=== PATIENT | male | born 1935 | race Caucasian/White ===

== ENCOUNTER 2021-04-13 15:17 | Inpatient (IN) ==
[2021-04-13] MEDS ORDERED: ONDANSETRON 4 MG/2 ML VIAL IV PRN (16:10)
[2021-04-13] MEDS ORDERED: ZALEPLON 5 MG CAPSULE PO PRN (16:10)
[2021-04-13] MEDS ORDERED: diphenhydrAMINE CAP 25 MG CAPSULE PO PRN (16:10)
[2021-04-13] MEDS ORDERED: ACETAMINOPHEN 325 MG TABLET PO PRN (16:10)
[2021-04-13] MEDS ORDERED: MAGNESIUM SULF RIDER 2 GM/50 ML PREMIX IV PRN (16:10)
[2021-04-13] MEDS ORDERED: SIMETHICONE CHEW 125 MG TABLET PO PRN (16:10)
[2021-04-13] MEDS ORDERED: MAGNESIUM SULF RIDER 4 GM/100 ML PREMIX IV PRN (16:10)
[2021-04-13] MEDS ORDERED: ASPIRIN CHEW 81 MG TABLET PO ONE (16:16)
[2021-04-13] MEDS ORDERED: ENOXAPARIN 80 MG/0.8 ML SYRINGE SUBCUT ONE (16:17)
[2021-04-13 16:53] LABS: Basophils % 0.3 % (0.0-0.8); Eosinophils # 0.1 10*3/uL (0.0-0.87); Eosinophils % 0.6 % (0.00-10.9); Hematocrit 45.3 VOL% (42.0-52.0); Hemoglobin 15.5 GM/DL (14.0-18.0); Immature Granulocytes % 0.6 %; Immature Granulocytes Absolute 0.07 #; Lymphocytes # 1.7 10*3/uL (1.4-4.0); Lymphocytes % 15.5 % (21.2-54.2); Mean Corpuscular HGB Conc 34.2 GM/DL (32-36); Mean Corpuscular Volume 92.8 FL (87-102); Mean Platelet Volume 10.7 FL (9.6-12.0); Platelet Count 185 T/CUMM (130-400); Red Blood Count 4.88 MC/CUMM (3.8-5.5); Red Cell Distribution Width 12.8 % (9.3-17.3); White Blood Count 10.8 T/CUMM (4-12)
[2021-04-13 17:17] LABS: Albumin 3.3 G/DL (3.4-5.0); Bilirubin,Total 0.6 MG/DL (0.20-1.00); Calcium 8.9 MG/DL (8.5-10.1); Potassium 4.2 MMOL/L (3.5-5.1); Thyroid Stimulating Hormone 2.57 uIU/ml (0.358-3.74); Total Protein 6.7 G/DL (6.4-8.2)
[2021-04-13] MEDS: NITROGLYCERIN 2% OINT 1 INCH/GM PACK TOP SCH ×2 (17:34→18:55)
[2021-04-13] MEDS: ROSUVASTATIN 20 MG TABLET PO SCH ×2 (21:21→23:00)
[2021-04-13] MEDS: METOPROLOL TARTRATE 50 MG TABLET PO SCH (21:21)
[2021-04-14] MEDS: NITROGLYCERIN 2% OINT 1 INCH/GM PACK TOP SCH ×3 (01:55→12:22)
[2021-04-14 05:06] LABS: Basophils % 0.4 % (0.0-0.8); Eosinophils # 0.1 10*3/uL (0.0-0.87); Eosinophils % 0.6 % (0.00-10.9); Hematocrit 44.1 VOL% (42.0-52.0); Hemoglobin 14.6 GM/DL (14.0-18.0); Immature Granulocytes % 0.6 %; Immature Granulocytes Absolute 0.06 #; Lymphocytes % 19.7 % (21.2-54.2); Mean Corpuscular HGB Conc 33.1 GM/DL (32-36); Monocytes % 12.8 % (1.7-12.7); Neutrophils % 65.9 % (38.7-73.9); Platelet Count 181 T/CUMM (130-400); Red Blood Count 4.69 MC/CUMM (3.8-5.5); Red Cell Distribution Width 13.1 % (9.3-17.3); White Blood Count 10.1 T/CUMM (4-12)
[2021-04-14 05:33] LABS: Bilirubin,Total 0.9 MG/DL (0.20-1.00); Calcium 8.8 MG/DL (8.5-10.1); Osmolality,Calculated 270.1 MOS/KG (273-304); Potassium 4.4 MMOL/L (3.5-5.1); Total Protein 6.5 G/DL (6.4-8.2)
[2021-04-14] MEDS ORDERED: ENOXAPARIN 80 MG/0.8 ML SYRINGE SUBCUT SCH (07:00)
[2021-04-14] MEDS ORDERED: POTASSIUM CHLORIDE RIDER 10 MEQ/100 ML PREMIX IV PRN (07:09)
[2021-04-14] MEDS ORDERED: DIAZEPAM 5 MG TABLET PO ONE (07:09)
[2021-04-14] MEDS ORDERED: diphenhydrAMINE CAP 50 MG CAPSULE PO ONE (07:10)
[2021-04-14] MEDS ORDERED: HEPARIN/NACL 0.9% 2 UNITS/ML 2,000 UNIT/1,000 ML BAG IV ONE (07:26)
[2021-04-14] MEDS ORDERED: LIDOCAINE 1%/EPI INJ 20 ML VIAL ONE (07:26)
[2021-04-14] MEDS: SODIUM CHLORIDE 0.9% 1,000 ML IV SCH ×3 (07:27→22:00)
[2021-04-14] MEDS ORDERED: MIDAZOLAM 2 MG/2 ML VIAL ONE (09:19)
[2021-04-14] MEDS ORDERED: fentaNYL 100 MCG/2 ML VIAL ONE (09:20)
[2021-04-14] MEDS ORDERED: ENOXAPARIN 30 MG/0.3 ML SYRINGE ONE (09:49)
[2021-04-14] MEDS: METOPROLOL TARTRATE 50 MG TABLET PO SCH ×2 (10:00→21:55)
[2021-04-14] MEDS: ASPIRIN CHEW 81 MG TABLET PO SCH (10:01)
[2021-04-14] MEDS: PANTOPRAZOLE 40 MG TABLET PO SCH (10:01)
[2021-04-14] MEDS: ISOSORBIDE MONONITRATE 30 MG TABLET PO SCH (14:10)
[2021-04-14] MEDS: ROSUVASTATIN 20 MG TABLET PO SCH (21:14)
[2021-04-15 05:22] LABS: Basophils % 0.4 % (0.0-0.8); Eosinophils % 0.2 % (0.00-10.9); Hematocrit 37.7 VOL% (42.0-52.0); Hemoglobin 12.6 GM/DL (14.0-18.0); Immature Granulocytes % 0.7 %; Immature Granulocytes Absolute 0.08 #; Lymphocytes # 1.5 10*3/uL (1.4-4.0); Lymphocytes % 13.5 % (21.2-54.2); Mean Corpuscular HGB Conc 33.4 GM/DL (32-36); Mean Corpuscular Volume 93.1 FL (87-102); Mean Platelet Volume 11.1 FL (9.6-12.0); Monocytes % 14.1 % (1.7-12.7); Neutrophils % 71.1 % (38.7-73.9); Platelet Count 156 T/CUMM (130-400); Red Blood Count 4.05 MC/CUMM (3.8-5.5); White Blood Count 10.9 T/CUMM (4-12)
[2021-04-15 05:41] LABS: Calcium 8.2 MG/DL (8.5-10.1); Osmolality,Calculated 283.3 MOS/KG (273-304); Potassium 4.3 MMOL/L (3.5-5.1)
[2021-04-15] MEDS: SODIUM CHLORIDE 0.9% 1,000 ML IV SCH (08:44)
[2021-04-15] MEDS ORDERED: CLOPIDOGREL 75 MG TABLET PO SCH (09:00)
[2021-04-15] MEDS: ISOSORBIDE MONONITRATE 30 MG TABLET PO SCH (09:29)
[2021-04-15] MEDS: ASPIRIN CHEW 81 MG TABLET PO SCH (09:29)
[2021-04-15] MEDS: PANTOPRAZOLE 40 MG TABLET PO SCH (09:29)
[2021-04-15] MEDS: METOPROLOL TARTRATE 50 MG TABLET PO SCH ×2 (09:29→21:05)
[2021-04-15] MEDS: TAMSULOSIN 0.4 MG CAPSULE PO SCH ×2 (12:58→21:03)
[2021-04-15] MEDS: DUTASTERIDE 0.5 MG CAPSULE PO SCH (12:58)
[2021-04-15 13:21] LABS: Bilirubin,Urine Negative (Negative); Blood, Urine Large mg/dL (Negative); Glucose,Urine (UA) Negative (Negative); Ketones,Urine 15 mg/dL (Negative); Nitrite,Urine Negative (Negative); Protein,Urine Trace MG/DL; Urine Appearance Slightly Cloudy (Clear); Urine Color Amber (Yellow); Urine Specific Gravity > 1.030 (1.000-1.030); Urine Urobilinogen 0.2 EU/DL (<2.0); Urine pH 5.5 (4.5-8.0)
[2021-04-15 13:25] LABS: Bacteria,Urine Occasional /HPF (Few); Mucus,Urine Many /LPF (Occasional); RBC,Urine 569 /HPF (0-4); Squamous Epithelial Cell,Urine Occasional /HPF (0-10)
[2021-04-15] MEDS: SODIUM CHLORIDE 0.45% 1,000 ML IV SCH (16:35)
[2021-04-15] MEDS: ROSUVASTATIN 20 MG TABLET PO SCH (22:39)
[2021-04-16] MEDS: SODIUM CHLORIDE 0.45% 1,000 ML IV SCH ×2 (02:59→08:31)
[2021-04-16 04:18] LABS: Basophils % 0.2 % (0.0-0.8); Eosinophils % 0.2 % (0.00-10.9); Hematocrit 41.6 VOL% (42.0-52.0); Hemoglobin 14.1 GM/DL (14.0-18.0); Immature Granulocytes % 0.6 %; Immature Granulocytes Absolute 0.07 #; Lymphocytes # 1.6 10*3/uL (1.4-4.0); Lymphocytes % 13.6 % (21.2-54.2); Mean Corpuscular HGB Conc 33.9 GM/DL (32-36); Mean Corpuscular Volume 93.3 FL (87-102); Mean Platelet Volume 12.3 FL (9.6-12.0); Monocytes % 13.4 % (1.7-12.7); Platelet Count 181 T/CUMM (130-400); Red Blood Count 4.46 MC/CUMM (3.8-5.5); Red Cell Distribution Width 12.9 % (9.3-17.3); White Blood Count 11.8 T/CUMM (4-12)
[2021-04-16 04:39] LABS: Calcium 8.9 MG/DL (8.5-10.1); Osmolality,Calculated 271.1 MOS/KG (273-304); Potassium 3.7 MMOL/L (3.5-5.1)
[2021-04-16] MEDS: MORPHINE 4 MG/1 ML VIAL IV PRN (06:17)
[2021-04-16] MEDS: DUTASTERIDE 0.5 MG CAPSULE PO SCH (08:23)
[2021-04-16] MEDS: TAMSULOSIN 0.4 MG CAPSULE PO SCH ×2 (08:23→20:25)
[2021-04-16] MEDS: METOPROLOL TARTRATE 50 MG TABLET PO SCH (08:24)
[2021-04-16] MEDS: ASPIRIN CHEW 81 MG TABLET PO SCH (08:24)
[2021-04-16] MEDS: ISOSORBIDE MONONITRATE 30 MG TABLET PO SCH (08:24)
[2021-04-16] MEDS: PANTOPRAZOLE 40 MG TABLET PO SCH (08:24)
[2021-04-16] MEDS: RANOLAZINE 500 MG TABLET PO SCH ×2 (08:25→20:25)
[2021-04-16] MEDS ORDERED: CLOPIDOGREL 75 MG TABLET PO SCH (09:00)
[2021-04-16] MEDS: POLYETHYLENE GLYCOL POWDER 17 GM PACK PO SCH (13:12)
[2021-04-16] MEDS: PHENAZOPYRIDINE 95 MG TABLET PO SCH ×2 (13:12→16:04)
[2021-04-16] MEDS: METOPROLOL TARTRATE 25 MG TABLET PO SCH (20:25)
[2021-04-16] MEDS: ROSUVASTATIN 20 MG TABLET PO SCH (20:26)
[2021-04-17 04:45] LABS: Basophils % 0.2 % (0.0-0.8); Eosinophils % 0.1 % (0.00-10.9); Hematocrit 34.8 VOL% (42.0-52.0); Immature Granulocytes % 0.5 %; Immature Granulocytes Absolute 0.05 #; Lymphocytes # 1.4 10*3/uL (1.4-4.0); Lymphocytes % 12.8 % (21.2-54.2); Mean Corpuscular HGB Conc 34.5 GM/DL (32-36); Mean Corpuscular Volume 92.6 FL (87-102); Mean Platelet Volume 11.6 FL (9.6-12.0); Monocytes % 14.2 % (1.7-12.7); Neutrophils % 72.2 % (38.7-73.9); Platelet Count 147 T/CUMM (130-400); Red Blood Count 3.76 MC/CUMM (3.8-5.5); White Blood Count 10.8 T/CUMM (4-12)
[2021-04-17] MEDS ORDERED: NITROGLYCERIN SL 0.4 MG TABLET SL ONE (05:07)
[2021-04-17] MEDS ORDERED: NITROGLYCERIN SL 0.4 MG TABLET SL PRN (05:08)
[2021-04-17 05:11] LABS: Potassium 3.6 MMOL/L (3.5-5.1)
[2021-04-17] MEDS ORDERED: DILTIAZEM 50 MG/10 ML VIAL IV ONE (05:24)
[2021-04-17] MEDS: MORPHINE 4 MG/1 ML VIAL IV PRN (05:47)
[2021-04-17] MEDS ORDERED: ENOXAPARIN 80 MG/0.8 ML SYRINGE SUBCUT ONE (07:00)
[2021-04-17] MEDS ORDERED: AMIODARONE INJ 150 MG in DEXTROSE 5% 100 ML IV ONE (07:28)
[2021-04-17] MEDS ORDERED: AMIODARONE INJ 450 MG in DEXTROSE 5% 241 ML IV SCH (07:30)
[2021-04-17] MEDS: DUTASTERIDE 0.5 MG CAPSULE PO SCH (08:35)
[2021-04-17] MEDS: PANTOPRAZOLE 40 MG TABLET PO SCH (08:35)
[2021-04-17] MEDS: RANOLAZINE 500 MG TABLET PO SCH ×2 (08:35→22:32)
[2021-04-17] MEDS: TAMSULOSIN 0.4 MG CAPSULE PO SCH ×2 (08:35→22:31)
[2021-04-17] MEDS: ISOSORBIDE MONONITRATE 30 MG TABLET PO SCH (08:35)
[2021-04-17] MEDS: METOPROLOL TARTRATE 25 MG TABLET PO SCH ×2 (08:35→22:31)
[2021-04-17] MEDS: PHENAZOPYRIDINE 95 MG TABLET PO SCH ×3 (08:35→17:20)
[2021-04-17] MEDS: ASPIRIN CHEW 81 MG TABLET PO SCH (08:35)
[2021-04-17] MEDS: POLYETHYLENE GLYCOL POWDER 17 GM PACK PO SCH (08:35)
[2021-04-17] MEDS ORDERED: MAGNESIUM SULF RIDER 2 GM/50 ML PREMIX IV ONE (09:50)
[2021-04-17] MEDS ORDERED: POTASSIUM CHLORIDE 20 MEQ TABLET PO ONE (09:51)
[2021-04-17] MEDS ORDERED: CLORAZEPATE 3.75 MG TABLET PO PRN (11:22)
[2021-04-17] MEDS ORDERED: MAGNESIUM OXIDE 400 MG TABLET PO ONE (11:54)
[2021-04-17] MEDS: ASCORBIC ACID 500 MG TABLET PO SCH ×2 (11:57→22:32)
[2021-04-17] MEDS: AMIODARONE INJ 450 MG in DEXTROSE 5% 241 ML IV SCH ×2 (15:00→20:10)
[2021-04-17] MEDS ORDERED: ENOXAPARIN 80 MG/0.8 ML SYRINGE SUBCUT SCH (19:00)
[2021-04-17] MEDS: ENOXAPARIN 80 MG/0.8 ML SYRINGE SUBCUT SCH (21:31)
[2021-04-17] MEDS: ROSUVASTATIN 20 MG TABLET PO SCH (22:31)
[2021-04-18 05:00] LABS: Basophils % 0.3 % (0.0-0.8); Eosinophils % 0.2 % (0.00-10.9); Hematocrit 38.1 VOL% (42.0-52.0); Immature Granulocytes % 0.4 %; Immature Granulocytes Absolute 0.04 #; Lymphocytes # 1.3 10*3/uL (1.4-4.0); Lymphocytes % 12.3 % (21.2-54.2); Mean Corpuscular HGB Conc 34.1 GM/DL (32-36); Mean Corpuscular Volume 91.6 FL (87-102); Mean Platelet Volume 11.1 FL (9.6-12.0); Monocytes % 11.4 % (1.7-12.7); Neutrophils % 75.4 % (38.7-73.9); Platelet Count 181 T/CUMM (130-400); Red Blood Count 4.16 MC/CUMM (3.8-5.5); White Blood Count 10.9 T/CUMM (4-12)
[2021-04-18 05:18] LABS: Calcium 7.8 MG/DL (8.5-10.1); Potassium 3.5 MMOL/L (3.5-5.1)
[2021-04-18] MEDS: ASPIRIN CHEW 81 MG TABLET PO SCH (10:05)
[2021-04-18] MEDS: PHENAZOPYRIDINE 95 MG TABLET PO SCH ×3 (10:05→16:19)
[2021-04-18] MEDS: TAMSULOSIN 0.4 MG CAPSULE PO SCH ×2 (10:06→20:17)
[2021-04-18] MEDS: DUTASTERIDE 0.5 MG CAPSULE PO SCH (10:06)
[2021-04-18] MEDS: METOPROLOL TARTRATE 25 MG TABLET PO SCH ×2 (10:08→20:17)
[2021-04-18] MEDS: ISOSORBIDE MONONITRATE 30 MG TABLET PO SCH (10:08)
[2021-04-18] MEDS: ENOXAPARIN 80 MG/0.8 ML SYRINGE SUBCUT SCH (10:36)
[2021-04-18] MEDS: POLYETHYLENE GLYCOL POWDER 17 GM PACK PO SCH (10:36)
[2021-04-18] MEDS: PANTOPRAZOLE 40 MG TABLET PO SCH (10:38)
[2021-04-18] MEDS: RANOLAZINE 500 MG TABLET PO SCH ×2 (10:38→20:17)
[2021-04-18] MEDS: ASCORBIC ACID 500 MG TABLET PO SCH ×2 (10:38→20:17)
[2021-04-18] MEDS: AMIODARONE INJ 450 MG in DEXTROSE 5% 241 ML IV SCH (11:28)
[2021-04-18] MEDS: ROSUVASTATIN 20 MG TABLET PO SCH (20:16)
[2021-04-19] MEDS: AMIODARONE INJ 450 MG in DEXTROSE 5% 241 ML IV SCH ×2 (04:47→16:56)
[2021-04-19 05:36] LABS: Basophils # 0.1 10*3/uL (0.0-0.2); Basophils % 0.5 % (0.0-0.8); Eosinophils % 0.4 % (0.00-10.9); Hematocrit 43.2 VOL% (42.0-52.0); Hemoglobin 14.6 GM/DL (14.0-18.0); Immature Granulocytes % 0.9 %; Lymphocytes # 1.3 10*3/uL (1.4-4.0); Lymphocytes % 12.7 % (21.2-54.2); Mean Corpuscular HGB Conc 33.8 GM/DL (32-36); Mean Corpuscular Volume 92.3 FL (87-102); Mean Platelet Volume 10.8 FL (9.6-12.0); Monocytes % 13.8 % (1.7-12.7); Neutrophils % 71.7 % (38.7-73.9); Platelet Count 240 T/CUMM (130-400); Red Blood Count 4.68 MC/CUMM (3.8-5.5); Red Cell Distribution Width 12.9 % (9.3-17.3); White Blood Count 10.6 T/CUMM (4-12)
[2021-04-19 05:47] LABS: Calcium 8.5 MG/DL (8.5-10.1); Osmolality,Calculated 270.2 MOS/KG (273-304); Potassium 3.7 MMOL/L (3.5-5.1)
[2021-04-19] MEDS ORDERED: ETOMIDATE 40 MG/20 ML VIAL IV ONE (07:12)
[2021-04-19] MEDS ORDERED: propofoL 200 MG/20 ML VIAL IV ONE (07:12)
[2021-04-19] MEDS ORDERED: LIDOCAINE 2% 5 ML VIAL ONE (07:12)
[2021-04-19] MEDS ORDERED: ESMOLOL 100 MG/10 ML VIAL IV ONE (07:28)
[2021-04-19] MEDS: ASPIRIN CHEW 81 MG TABLET PO SCH (10:18)
[2021-04-19] MEDS: PANTOPRAZOLE 40 MG TABLET PO SCH (10:18)
[2021-04-19] MEDS: NYSTATIN 500,000 UNIT/5 ML UDCUP SWISH/SWAL SCH ×4 (10:19→22:24)
[2021-04-19] MEDS: RANOLAZINE 500 MG TABLET PO SCH ×2 (10:19→22:14)
[2021-04-19] MEDS: POLYETHYLENE GLYCOL POWDER 17 GM PACK PO SCH (10:19)
[2021-04-19] MEDS: TAMSULOSIN 0.4 MG CAPSULE PO SCH ×2 (10:19→22:18)
[2021-04-19] MEDS: ASCORBIC ACID 500 MG TABLET PO SCH ×2 (10:19→22:17)
[2021-04-19] MEDS: PHENAZOPYRIDINE 95 MG TABLET PO SCH ×3 (10:19→17:32)
[2021-04-19] MEDS: METOPROLOL TARTRATE 25 MG TABLET PO SCH ×2 (10:19→22:17)
[2021-04-19] MEDS: ISOSORBIDE MONONITRATE 30 MG TABLET PO SCH (10:19)
[2021-04-19] MEDS: DUTASTERIDE 0.5 MG CAPSULE PO SCH (10:20)
[2021-04-19] MEDS: ROSUVASTATIN 20 MG TABLET PO SCH (22:18)
[2021-04-20 05:53] LABS: Basophils % 0.4 % (0.0-0.8); Eosinophils # 0.1 10*3/uL (0.0-0.87); Eosinophils % 0.7 % (0.00-10.9); Hematocrit 38.4 VOL% (42.0-52.0); Hemoglobin 13.1 GM/DL (14.0-18.0); Immature Granulocytes % 1.2 %; Immature Granulocytes Absolute 0.13 #; Lymphocytes # 1.4 10*3/uL (1.4-4.0); Lymphocytes % 13.3 % (21.2-54.2); Mean Corpuscular HGB Conc 34.1 GM/DL (32-36); Mean Corpuscular Volume 91.4 FL (87-102); Mean Platelet Volume 10.8 FL (9.6-12.0); Monocytes % 12.2 % (1.7-12.7); Neutrophils % 72.2 % (38.7-73.9); Platelet Count 255 T/CUMM (130-400); Red Cell Distribution Width 12.9 % (9.3-17.3); White Blood Count 10.8 T/CUMM (4-12)
[2021-04-20 06:10] LABS: Calcium 7.9 MG/DL (8.5-10.1); Potassium 3.5 MMOL/L (3.5-5.1)
[2021-04-20] MEDS ORDERED: POTASSIUM CHLORIDE 20 MEQ TABLET PO ONE (10:14)
[2021-04-20] MEDS: DUTASTERIDE 0.5 MG CAPSULE PO SCH (10:42)
[2021-04-20] MEDS: ASPIRIN CHEW 81 MG TABLET PO SCH (10:42)
[2021-04-20] MEDS: PHENAZOPYRIDINE 95 MG TABLET PO SCH ×2 (10:42→12:57)
[2021-04-20] MEDS: ISOSORBIDE MONONITRATE 30 MG TABLET PO SCH (10:42)
[2021-04-20] MEDS: METOPROLOL TARTRATE 25 MG TABLET PO SCH (10:42)
[2021-04-20] MEDS: PANTOPRAZOLE 40 MG TABLET PO SCH (10:43)
[2021-04-20] MEDS: NYSTATIN 500,000 UNIT/5 ML UDCUP SWISH/SWAL SCH ×2 (10:43→13:40)
[2021-04-20] MEDS: RANOLAZINE 500 MG TABLET PO SCH (10:43)
[2021-04-20] MEDS: ASCORBIC ACID 500 MG TABLET PO SCH (10:43)
[2021-04-20] MEDS: POLYETHYLENE GLYCOL POWDER 17 GM PACK PO SCH (10:43)
[2021-04-20] MEDS: TAMSULOSIN 0.4 MG CAPSULE PO SCH (10:43)
[2021-04-20] MEDS: AMIODARONE 200 MG TABLET PO SCH (10:43)
[2021-04-20] MEDS: ENOXAPARIN 80 MG/0.8 ML SYRINGE SUBCUT SCH ×2 (10:48→22:58)
[2021-04-20] MEDS: AMIODARONE INJ 450 MG in DEXTROSE 5% 241 ML IV SCH (13:02)
[2021-04-20] MEDS ORDERED: SODIUM CHLORIDE 0.9% 1,000 ML IV SCH (15:30)
[2021-04-20 17:10] LABS: Basophils % 0.4 % (0.0-0.8); Eosinophils # 0.1 10*3/uL (0.0-0.87); Eosinophils % 0.9 % (0.00-10.9); Hematocrit 37.7 VOL% (42.0-52.0); Hemoglobin 12.8 GM/DL (14.0-18.0); Immature Granulocytes Absolute 0.11 #; Lymphocytes # 1.3 10*3/uL (1.4-4.0); Lymphocytes % 12.1 % (21.2-54.2); Mean Corpuscular Volume 91.5 FL (87-102); Monocytes % 12.2 % (1.7-12.7); Neutrophils % 73.4 % (38.7-73.9); Platelet Count 249 T/CUMM (130-400); Red Blood Count 4.12 MC/CUMM (3.8-5.5); Red Cell Distribution Width 12.9 % (9.3-17.3)
[2021-04-20 17:19] LABS: Albumin 1.9 G/DL (3.4-5.0); Bilirubin,Total 0.9 MG/DL (0.20-1.00); Potassium 3.8 MMOL/L (3.5-5.1); Total Protein 5.7 G/DL (6.4-8.2)
[2021-04-20 17:21] LABS: INR 1.1; PT Patient Result 12.4 SECS (10.5-12.0); Partial Thromboplastin Time 34.9 SECS (23.8-32.1)
[2021-04-20] MEDS: SODIUM CHLORIDE 0.45% 1,000 ML IV SCH (19:07)
[2021-04-20] MEDS: METOPROLOL TARTRATE 5 MG/5 ML VIAL IV SCH (22:57)
[2021-04-21] MEDS: METOPROLOL TARTRATE 5 MG/5 ML VIAL IV SCH ×3 (00:10→12:58)
[2021-04-21 05:45] LABS: Basophils # 0.1 10*3/uL (0.0-0.2); Basophils % 0.5 % (0.0-0.8); Eosinophils # 0.1 10*3/uL (0.0-0.87); Eosinophils % 1.1 % (0.00-10.9); Hematocrit 37.6 VOL% (42.0-52.0); Hemoglobin 12.8 GM/DL (14.0-18.0); Immature Granulocytes % 0.8 %; Immature Granulocytes Absolute 0.09 #; Lymphocytes # 1.4 10*3/uL (1.4-4.0); Lymphocytes % 12.9 % (21.2-54.2); Mean Corpuscular Volume 91.5 FL (87-102); Mean Platelet Volume 10.4 FL (9.6-12.0); Monocytes % 11.5 % (1.7-12.7); Neutrophils % 73.2 % (38.7-73.9); Platelet Count 252 T/CUMM (130-400); Red Blood Count 4.11 MC/CUMM (3.8-5.5); Red Cell Distribution Width 12.9 % (9.3-17.3)
[2021-04-21 06:10] LABS: Calcium 8.3 MG/DL (8.5-10.1); Osmolality,Calculated 279.7 MOS/KG (273-304); Potassium 3.4 MMOL/L (3.5-5.1)
[2021-04-21] MEDS: SODIUM CHLORIDE 0.45% 1,000 ML IV SCH ×3 (07:09→23:02)
[2021-04-21] MEDS ORDERED: POTASSIUM CHLORIDE 20 MEQ TABLET PO ONE (08:00)
[2021-04-21] MEDS: POTASSIUM CHLORIDE RIDER 10 MEQ/100 ML PREMIX IV SCH ×2 (09:29→12:02)
[2021-04-21] MEDS: ENOXAPARIN 80 MG/0.8 ML SYRINGE SUBCUT SCH ×2 (09:29→22:04)
[2021-04-21] MEDS ORDERED: MORPHINE 2 MG/1 ML SYRINGE IV PRN (14:22)
[2021-04-21] MEDS: PHENAZOPYRIDINE 95 MG TABLET PO SCH (16:59)
[2021-04-21] MEDS ORDERED: ROSUVASTATIN 20 MG TABLET PO SCH (21:00)
[2021-04-21] MEDS: METOPROLOL TARTRATE 25 MG TABLET PO SCH (22:03)
[2021-04-21] MEDS: AMIODARONE 200 MG TABLET PO SCH (22:03)
[2021-04-21] MEDS: TAMSULOSIN 0.4 MG CAPSULE PO SCH (22:04)
[2021-04-21] MEDS: ASCORBIC ACID 500 MG TABLET PO SCH (22:04)
[2021-04-21] MEDS: RANOLAZINE 500 MG TABLET PO SCH (22:05)
[2021-04-22 04:50] LABS: Basophils # 0.1 10*3/uL (0.0-0.2); Basophils % 0.7 % (0.0-0.8); Eosinophils # 0.1 10*3/uL (0.0-0.87); Eosinophils % 1.4 % (0.00-10.9); Hematocrit 39.5 VOL% (42.0-52.0); Hemoglobin 13.2 GM/DL (14.0-18.0); Immature Granulocytes % 1.3 %; Immature Granulocytes Absolute 0.12 #; Lymphocytes # 1.5 10*3/uL (1.4-4.0); Lymphocytes % 15.6 % (21.2-54.2); Mean Corpuscular HGB Conc 33.4 GM/DL (32-36); Mean Corpuscular Volume 92.3 FL (87-102); Mean Platelet Volume 10.1 FL (9.6-12.0); Monocytes % 10.5 % (1.7-12.7); Neutrophils % 70.5 % (38.7-73.9); Platelet Count 279 T/CUMM (130-400); Red Blood Count 4.28 MC/CUMM (3.8-5.5); Red Cell Distribution Width 12.9 % (9.3-17.3); White Blood Count 9.5 T/CUMM (4-12)
[2021-04-22 05:07] LABS: Calcium 7.9 MG/DL (8.5-10.1); Osmolality,Calculated 278.7 MOS/KG (273-304); Potassium 3.5 MMOL/L (3.5-5.1)
[2021-04-22] MEDS ORDERED: APIXABAN 2.5 MG TABLET PO SCH (09:00)
[2021-04-22] MEDS ORDERED: CLOPIDOGREL 75 MG TABLET PO SCH (09:00)
[2021-04-22] MEDS: RANOLAZINE 500 MG TABLET PO SCH (09:43)
[2021-04-22] MEDS: DUTASTERIDE 0.5 MG CAPSULE PO SCH (09:43)
[2021-04-22] MEDS: TAMSULOSIN 0.4 MG CAPSULE PO SCH (09:43)
[2021-04-22] MEDS: METOPROLOL TARTRATE 25 MG TABLET PO SCH (09:43)
[2021-04-22] MEDS: PHENAZOPYRIDINE 95 MG TABLET PO SCH ×2 (09:43→12:52)
[2021-04-22] MEDS: AMIODARONE 200 MG TABLET PO SCH (09:44)
[2021-04-22] MEDS: ASCORBIC ACID 500 MG TABLET PO SCH (09:44)
[2021-04-22] MEDS: ISOSORBIDE MONONITRATE 30 MG TABLET PO SCH (09:44)
[2021-04-22] MEDS: PANTOPRAZOLE 40 MG TABLET PO SCH (09:44)
[2021-04-22] MEDS: SODIUM CHLORIDE 0.45% 1,000 ML IV SCH (12:21)
[2021-04-22 12:35] VITALS: BP 96/58
== END 2021-04-22 15:02 | DRG 280 ==
LOC: N.TELES
PROVIDERS: ADMIT Internal Medicine Interventional Cardiology; ATTEND Internal Medicine Interventional Cardiology
PROC: CLCCHCL (ICD-10-PCS; 2021-04-14 09:15)

== ENCOUNTER 2021-05-04 00:52 | Observation (INO) ==
[2021-05-04 01:30] LABS: Basophils % 0.2 % (0.0-0.8); Eosinophils # 0.1 10*3/uL (0.0-0.87); Eosinophils % 0.6 % (0.00-10.9); Hematocrit 34.9 VOL% (42.0-52.0); Hemoglobin 11.5 GM/DL (14.0-18.0); Immature Granulocytes Absolute 0.12 #; Lymphocytes # 1.2 10*3/uL (1.4-4.0); Lymphocytes % 9.8 % (21.2-54.2); Mean Corpuscular Volume 94.8 FL (87-102); Mean Platelet Volume 10.5 FL (9.6-12.0); Monocytes % 8.8 % (1.7-12.7); Neutrophils % 79.6 % (38.7-73.9); Platelet Count 358 T/CUMM (130-400); Red Blood Count 3.68 MC/CUMM (3.8-5.5); White Blood Count 12.3 T/CUMM (4-12)
[2021-05-04 01:42] LABS: INR 1.2; PT Patient Result 12.7 SECS (10.5-12.0)
[2021-05-04] MEDS ORDERED: SODIUM CHLORIDE 0.9% 500 ML IV STA (01:50)
[2021-05-04 02:08] LABS: Albumin 2.9 G/DL (3.4-5.0); Bilirubin,Total 1.3 MG/DL (0.20-1.00); Calcium 8.7 MG/DL (8.5-10.1); Osmolality,Calculated 278.8 MOS/KG (273-304); Potassium 3.8 MMOL/L (3.5-5.1); Total Protein 5.8 G/DL (6.4-8.2)
[2021-05-04 02:46] LABS: Glucose,Urine (UA) 100 mg/dL (Negative); Ketones,Urine 15 mg/dL (Negative); Mucus,Urine Many /LPF (Occasional); Protein,Urine >=300 mg/dL (Negative); RBC,Urine 51 /HPF (0-4); Squamous Epithelial Cell,Urine Occasional /HPF (0-10); Urine Appearance Cloudy (Clear); Urine Color Orange (Yellow)
[2021-05-04 02:47] LABS: Bilirubin,Urine Small mg/dL (Negative); Blood, Urine Moderate mg/dL (Negative); Nitrite,Urine Positive (Negative)
[2021-05-04] MEDS ORDERED: MAGNESIUM SULF RIDER 2 GM/50 ML PREMIX IV PRN (03:28)
[2021-05-04] MEDS ORDERED: ACETAMINOPHEN 325 MG TABLET PO PRN (03:28)
[2021-05-04] MEDS ORDERED: MAGNESIUM SULF RIDER 4 GM/100 ML PREMIX IV PRN (03:28)
[2021-05-04] MEDS ORDERED: GLUCAGON 1 MG VIAL IM PRN (03:28)
[2021-05-04] MEDS ORDERED: ONDANSETRON 4 MG/2 ML VIAL IV PRN (03:28)
[2021-05-04] MEDS ORDERED: POTASSIUM CHLORIDE 20 MEQ TABLET PO PRN (03:35)
[2021-05-04] MEDS ORDERED: POTASSIUM CHLORIDE RIDER 10 MEQ/100 ML PREMIX IV PRN (03:35)
[2021-05-04] MEDS ORDERED: NITROGLYCERIN SL 0.4 MG TABLET SL PRN (03:40)
[2021-05-04] MEDS ORDERED: DEXTROSE 10% 250 ML BAG IV PRN (03:41)
[2021-05-04] MEDS ORDERED: FUROSEMIDE 40 MG/4 ML VIAL IV SCH (08:00)
[2021-05-04] MEDS: INSULIN REGULAR 100 UNIT/ML SUBCUT SCH ×3 (08:51→16:41)
[2021-05-04] MEDS ORDERED: DUTASTERIDE 0.5 MG CAPSULE PO SCH (09:00)
[2021-05-04] MEDS ORDERED: DOCUSATE SODIUM 100 MG CAPSULE PO SCH (09:00)
[2021-05-04] MEDS ORDERED: RANOLAZINE 500 MG TABLET PO SCH (09:00)
[2021-05-04] MEDS ORDERED: GENTAMICIN INJ 420 MG in SODIUM CHLORIDE 0.9% 100 ML IV SCH (09:00)
[2021-05-04] MEDS ORDERED: AMIODARONE 200 MG TABLET PO SCH (09:00)
[2021-05-04] MEDS ORDERED: CLOPIDOGREL 75 MG TABLET PO SCH (09:00)
[2021-05-04] MEDS ORDERED: PANTOPRAZOLE 40 MG TABLET PO SCH (09:00)
[2021-05-04] MEDS ORDERED: ISOSORBIDE MONONITRATE 30 MG TABLET PO SCH (09:00)
[2021-05-04] MEDS ORDERED: APIXABAN 2.5 MG TABLET PO SCH (09:00)
[2021-05-04] MEDS ORDERED: TAMSULOSIN 0.4 MG CAPSULE PO SCH (09:00)
[2021-05-04] MEDS ORDERED: ASCORBIC ACID 500 MG TABLET PO SCH (09:00)
[2021-05-04] MEDS: PHENAZOPYRIDINE 95 MG TABLET PO SCH ×3 (09:05→17:18)
[2021-05-04 12:23] VITALS: BP 90/54
[2021-05-04] MEDS ORDERED: CEFUROXIME 500 MG TABLET PO ONE (15:00)
[2021-05-04] MEDS ORDERED: ROSUVASTATIN 20 MG TABLET PO SCH (21:00)
[2021-05-05] MEDS ORDERED: FUROSEMIDE 40 MG TABLET PO SCH (09:00)
== END 2021-05-04 17:12 | disposition home or self-care (01) ==
LOC: EDBD → EDUNIT# → N.EDINP 00:52 → N.ED 00:52 → N.TELEN 06:20
PROVIDERS: ADMIT Internal Medicine; ATTEND Internal Medicine